=== PATIENT | male | born 1945 | race Caucasian/White ===

== ENCOUNTER → 2017-05-14 | Day surgery (SDC) | payer MEDICARE ==
[2017-05-14] VITALS (10 sets, daily range): BP systolic 88–170; BP diastolic 48–76
[2017-05-14 08:14] LABS: HEMOGLOBIN 9.8 g/dL (14.1-18.0)
[2017-05-14 08:15] LABS: LYMPH # 0.9 K/mm3 (0.7-4.5); LYMPH % 16.6 % (10-50)
[2017-05-14 08:27] LABS: BUN 11 mg/dL (7-18)
[2017-05-14 08:32] LABS: GFR (ESTIMATED) 66 ML/MIN (>60)
--- NOTE | 2017-05-14 14:35 | RADIOLOGY REPORT PS360 ---
CARDIAC CATHETERIZATION DATE OF CATHETERIZATION:05/14/2017 10:20 AM PROCEDURES: 1. Left heart catheterization 2. Left ventriculogram 3. Selective coronary angiogram 4. Drug-eluting stent deployment to the ostial proximal dominant right coronary artery 5. Catheter placement in the abdominal aorta 6. Abdominal aortography 7. Repositioning of the catheter in the abdominal aorta 8. Bilateral iliofemoral runoff 9. Catheter placement in the right peroneal artery 10. Angioplasty to the right popliteal artery 11. 2 hour peripheral interventional procedure INDICATION FOR TEST: 1. Coronary artery disease 2. Angina pectoris class III 3. Peripheral artery disease 4. Claudication [place] class III 5. Right popliteal artery stenosis Informed consent was obtained prior to the procedure. COMPLICATIONS: None ESTIMATED BLOOD LOSS: Less than 10 ml. TECHNIQUE: One percent lidocaine used to anesthetize the right anterior aspect of the wrist. The right radial artery was accessed via the Seldinger technique. A 6 Japanese sheath was placed in the right radial artery. 2.5 mg of verapamil, 800 mcg of nitroglycerin and 5000 U Heparin were given through the arterial sheath. The trap catheter was also used to perform left heart catheterization left ventriculogram and left coronary angiography. At the end of the diagnostic angiogram and additional 4000 units of heparin was administered intravenously giving an outer range ACT. A JL 3 guide catheter was used to perform left coronary angiography and following the left coronary angiogram the same catheter was used to cannulate the right coronary artery are 3.5 x 38 mm resolute Oark stent was deployed at 20 flory. At the end of the inflation the ostium still required post dilatation therefore a 4 mm x 8 mm resolute Gilson stent was placed ostially and deployed at 20 flory giving a better angiographic result with complete reduction of the stenosis to 0%. At the end of the intervention ZULLY-3 flow was present before and after the procedure. The catheter was pulled back into the transverse aorta and a wire was then placed into the distal abdominal aorta. The pigtail catheter was used to perform abdominal aortography repositioned and bilateral iliofemoral runoff was performed. Following this one percent lidocaine was used to anesthetize the left groin in the left femoral artery was accessed via a centimeter technique. A 5 Japanese sheath was placed in the right femoral artery and a rim catheter was used to cannulate the right common iliac artery. The wire was placed distally into the SFA and the 5 Japanese sheath was exchanged for a 6 Japanese destination sheath. Due to the extreme calcification noncompliance rigidity of the iliofemoral system bilaterally on was unable to deep seed the sheath to where it ended in the right femoral system. As a result the catheter ended at the right common iliac artery. Following this multiple wires and balloons were used and eventually I was able to push across the occlusion in the popliteal artery with a 0.14 wire and trailblazer. A 2 mm balloon was inflated on multiple occasions but the lumen still would not open or the balloon advanced beyond the mid popliteal artery. Multiple attempts using multiple balloons and trailblazers etc. were used and still I was unable to pass beyond the heavily calcified popliteal artery. After over 2 hours of attempting to revascularize the popliteal artery the apparatus was removed the sheath was exchanged for a short 7 Japanese sheath and the patient transferred the postop holding area in stable condition ANGIOGRAPHIC RESULTS: 1. The left main artery is normal 2. The left anterior descending artery has a proximal concentric 50% stenosis with mid vessel 60-70% stenosis immediately after a large second diagonal artery 3. The circumflex artery is a nondominant vessel and has proximal 30% and mid vessel 60% eccentric stenosis extending from the proximal circumflex which artery into the large first obtuse marginal artery. Distal to the first obtuse marginal artery there is a long concentric 70% stenosis supplying a relatively small third and fourth obtuse marginal artery 4. The right coronary artery is a dominant vessel and has an ostial 80% proximal 70% followed by an additional 70-80% concentric stenosis. The mid segment has a stent which is widely patent free of in-stent restenosis with distal 30% stenoses 5. The PEARSON ventriculogram reveals normal 65% 6. The left ventricular end-diastolic pressure 20 mmHg 7. Renal arteries are singular and normal 8. Mesenteric arteries are widely patent 9. The distal abdominal aorta is calcified with tendon 20% stenosis 10. Bilateral common iliac arteries are densely calcified with no focal stenosis exceeding 20-30% 11. Bilateral internal iliac arteries are normal 12. Bilateral external iliac arteries are calcified with no significant focal stenosis 13. Bilateral common femoral arteries are densely calcified with no stenosis greater than 30% 14. The bilateral profunda femoris arteries are normal 15. Bilateral superficial femoral arteries are densely calcified with multiple like lesions up and down the mid segment. Multiple stenoses range from her due to 60-70% throughout 16. The left popliteal artery is moderately diseased with three-vessel runoff below the knee on the left side 17. Right popliteal artery is subtotally occluded in its mid to distal segment and then reconstitutes distally. It is heavily calcified. There is three-vessel runoff below the popliteal artery and the right side IMPRESSION: 1. Coronary artery disease as described above 2. Successful stenting of the ostial proximal right coronary artery severe disease reduced to 0% with 2 drug-eluting stents 3. Persistent moderate proximal LAD disease 4. Persistent moderate circumflex artery disease 5. Normal ejection fraction 6. Mildly elevated LVEDP 7. Peripheral artery disease as described above 8. 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 Aspirin and Plavix 2. LDL less than 55 3. Cardiac rehabilitation 4. Avoidance of tobacco products 5. I would recommend medical management for the popliteal artery and less patient has recalcitrant claudication. If he has ongoing intolerable symptoms he could be referred for retrograde/pedal arterial access and possible rotational atherectomy of the popliteal artery 6. I would recommend medical management for the SFA disease
== END ==
LOC: CATHLAB 07:20
PROVIDERS: Internal Medicine
PROC: 027034Z Dilation of Coronary Artery, One Artery with Drug-eluting Intraluminal Device, Percutaneous Approach (ICD-10-PCS; 2017-05-14)
PROC: B2111ZZ Fluoroscopy of Multiple Coronary Arteries using Low Osmolar Contrast (ICD-10-PCS; 2017-05-14)
PROC: B2151ZZ Fluoroscopy of Left Heart using Low Osmolar Contrast (ICD-10-PCS; 2017-05-14)
PROC: B41D1ZZ Fluoroscopy of Aorta and Bilateral Lower Extremity Arteries using Low Osmolar Contrast (ICD-10-PCS; 2017-05-14)
PROC: 4A023N7 Measurement of Cardiac Sampling and Pressure, Left Heart, Percutaneous Approach (ICD-10-PCS; principal; 2017-05-14 11:00)
DX: I25.119 Atherosclerotic heart disease of native coronary artery with unspecified angina pectoris (principal); Z72.0 Tobacco use; I70.211 Atherosclerosis of native arteries of extremities with intermittent claudication, right leg; E11.8 Type 2 diabetes mellitus with unspecified complications; I77.1 Stricture of artery
CPT/HCPCS: C1725; C1766; C1769; C1876; C1894; J1644; J2720; Q9966; Q9967